=== PATIENT | female | born 1980 | race Hispanic/Latino ===

== ENCOUNTER 2019-12-22 14:47 | Emergency (ER) | payer OTHER | END 2019-12-22 15:30 | disposition home or self-care (01) | LOC: EDH 14:47 | DX: J02.9 Acute pharyngitis, unspecified (principal); R50.9 Fever, unspecified; F41.1 Generalized anxiety disorder; M79.10 Myalgia, unspecified site; Z20.828 Contact with and (suspected) exposure to other viral communicable diseases; Z90.49 Acquired absence of other specified parts of digestive tract | CPT/HCPCS: 36415; 99283; U0003 ==